=== PATIENT | female | born 1955 | race Caucasian/White ===

== ENCOUNTER 2020-08-29 16:43 | Emergency (ER) | payer OTHER ==
[~2020-08-29] VITALS: Ht 175.3 cm; Wt 81.6 kg
[2020-08-29] MEDS ORDERED: OXYCODONE HCL5 MG PO ×2 (17:09→17:51)
[2020-08-29] MEDS ORDERED: LANTUS100 UNITS/ SUB-Q (17:10)
[2020-08-29] MEDS ORDERED: ATENOLOL25 MG PO (17:10)
[2020-08-29] MEDS ORDERED: GLUCOPHAGE1000 MG PO (17:11)
[2020-08-29] MEDS ORDERED: HYDROCHLOROTHIA25 MG PO (17:12)
[2020-08-29] MEDS ORDERED: VENTOLIN HFA18 GM INH (17:13)
[2020-08-29] MEDS ORDERED: TRIAMCINOLONE A15 G1 TOP (17:51)
[2020-08-29] MEDS ORDERED: KETOCONAZOLE15 GM TOP (17:51)
--- OUTSIDE RECORDS SUMMARY | 2020-08-29 17:54 | XMS ---
PreManage Notification: ROBERT JACOBSEN Security Clinical Support Nurse Events No recent Security Events currently on file [facility] There are no care providers on record at this time. Rhea has no Care Guidelines for this patient. Teresa VISIT COUNT (12 MO.) 1 ANGIE Mcneal TOTAL 1 NOTE: Visits indicate total known visits. ED/C VISIT TRACKING (12 MO.) 08/29/2020 16:47 ANGIE Silver [place] TYPE: Emergency COMPLAINT: - MULT COMPLAINTS INPATIENT VISIT TRACKING (12 MO.) No inpatient visits to display in this time frame [id number]
== END 2020-08-29 18:00 | disposition home or self-care (01) ==
LOC: ED 16:43
DX: R21 Rash and other nonspecific skin eruption (principal); Z76.0 Encounter for issue of repeat prescription; J44.9 Chronic obstructive pulmonary disease, unspecified; E11.9 Type 2 diabetes mellitus without complications; F17.200 Nicotine dependence, unspecified, uncomplicated; Z79.899 Other long term (current) drug therapy; Z79.4 Long term (current) use of insulin
CPT/HCPCS: 99282

== ENCOUNTER 2021-03-07 12:29 | Observation (INO) | payer MEDICARE, OTHER ==
[~2021-03-07] VITALS: Ht 175.3 cm; Wt 82.0 kg
[~2021-03-07 12:29] MED LIST: ATENOLOL25 MG PO; GLUCOPHAGE1000 MG PO; HYDROCHLOROTHIA25 MG PO; KETOCONAZOLE15 GM TOP; LANTUS100 UNITS/ SUB-Q; OXYCODONE HCL5 MG PO; TRIAMCINOLONE A15 G1 TOP; VENTOLIN HFA18 GM INH
--- OUTSIDE RECORDS SUMMARY | 2021-03-07 12:32 | XMS ---
PreManage Notification: ROBERT JACOBSEN Security Vacuum Closing Machine Operator Events No recent Security Events currently on file [facility] There are no care providers on record at this time. Rhea has no Care Guidelines for this patient. Teresa VISIT COUNT (12 MO.) 2 ANGIE Mcneal TOTAL 2 NOTE: Visits indicate total known visits. ED/C VISIT TRACKING (12 MO.) 03/07/2021 12:30 ANGIE Silver [place] TYPE: Emergency COMPLAINT: - HIGH BLOODSUGAR, NUMB ISSUE 08/29/2020 16:[address] [facility] OR TYPE: Emergency COMPLAINT: - MULT COMPLAINTS DIAGNOSES: - Chronic obstructive pulmonary disease, unspecified - Encounter for issue of repeat prescription - Type 2 diabetes mellitus without complications - custodial (current) use of insulin - Rash and other nonspecific skin eruption - Nicotine dependence, unspecified, uncomplicated - Other fdc (current) drug therapy INPATIENT VISIT TRACKING (12 MO.) No inpatient visits to display in this time frame [id number]
--- NOTE | 2021-03-07 17:20 | NUR ---
PT TO ROOM VIA STRETCHER SELF TRANSFERS TO BED. PT IS UPBEAT AND COOPERATIVE ALERT AND ORIENTED. REPORTS NO FOOD OTHER THAN A SNACK SINCE YESTERDAY, ASSISTED TO ORDER EVENING MEAL. PT ORIENTED TO ROOM AND AGREES TO USE THE CALL LIGHT FOR UP OUT OF BED. NEEDED ITEMS AT BEDSIDE.
--- NOTE | 2021-03-07 19:00 | NUR ---
SHIFT REPORT RECEIVED FROM DAYSHIFT GREGORY ELY AT BEDSIDE. pt AWAKE AND RESTING IN BED, UP TO VOID, SBA AND RETURNED TO BED. TOLERATED WELL, STEADY ON FEET. WARM BLANKET PROVIDED. NO ADDITIOANL NEEDS, BOARD UPDATED. CALL LIGHT IN REACH.
--- NOTE | 2021-03-07 19:17 | NUR ---
pt has 100% of evening meal denies needs of anything else
--- NOTE | 2021-03-07 20:30 | NUR ---
PRN PAIN MEDICATION GIVEN FOR 4-5/10 GENERALIZED PAIN R/T NEUROPATHY. SEE EMAR. NO FURTHER NEEDS, CALL LIGHT IN REACH.
--- NOTE | 2021-03-07 21:15 | NUR ---
pt ASKING FOR HER HOME SLEEPING MEDS. pt BROUGHT HER HOME QUETIAPINE FUMARATE 200MG DAILY AT BEDTIME. ON PHONE WITH DR MONTERO, PER MD AVILES FOR pt TO TAKE HOME MED LISTED ABOVE. ULTRASONIC TESTER BAILEY TO VERIFY MED THROUGH TELEPHARMACY.
--- NOTE | 2021-03-07 22:30 | NUR ---
ASSESSMENT COMPLETE, SCHEDULED MEDS GIVEN, SEE EMAR. NIH STROKE SCALE REMAINS UNCHANGED, RESULT OF 1. NUMBNESS TO RIGHT SIDE OF FACE, RIGHT THUMB, INDEX AND MIDDLE FINGER UNCHANGED. A/OX4, SBA WITH AMBULATION. IV FLUIDS INFUSING PER MD ORDERS, SITE WNL. NO FURTHER NEEDS, VS AND I&O'S ALSO COMPLETE. CALL LIGHT IN REACH.
--- NOTE | 2021-03-07 23:46 | NUR ---
PATIENT'S ICE WATER REFILLED AND DIABETIC PUDDING GIVEN. PATIENT HAD NO OTHER CARE NEEDS. CALL LIGHT IS IN REACH.
--- NOTE | 2021-03-08 00:44 | NUR ---
pt RESTING IN BED, EYES CLOSED, RR EVEN AND UNLABORED. ON RA, TELE#[address], NSR, HR 60. NO DISTRESS NOTED, CALL LIGHT IN REACH.
--- NOTE | 2021-03-08 01:49 | NUR ---
ASSESSMENT COMPLETE, NO NEW CHANGES OR CONCERNS. PUPILS EQUAL AND REACTIVE TO LIGHT, NO CHANGES TO ALREADY EXISTING NUMBNESS TO RIGHT SIDE OF SIDE, RIGHT THUMB, INDEX, AND MIDDLE FINGER. pt A/OX4, TELE#[address] IN [address], HR 63, NSR. VSS, I&O'S COMPLETE. CALL LIGHT IN REACH.
--- NOTE | 2021-03-08 03:13 | NUR ---
NEW BAG IV FLUIDS HUNG AND INFUSING PER MD ORDERS, IV SITE WNL. EYES CLOSED, RR EVEN AND UNLABORED, NO DISTRESS NOTED. CALL LIGHT IN REACH.
--- NOTE | 2021-03-08 04:30 | NUR ---
IN TO GET VITALS, PT UP TO VOID SBA, ICE WATER REFILLED, RN IN ROOM, NO FURTHER NEEDS AT THIS TIME
--- NOTE | 2021-03-08 04:47 | NUR ---
PRN PAIN MEDICATION GIVEN FOR 8/10 PAIN, SEE EMAR. VS AND I&O'S COMPLETE. MRI SCREENING FORM ALSO COMPLETED AT THIS TIME. CALL LIGHT IN REACH. WARM BLANKET PROVIDED.
--- NOTE | 2021-03-08 05:37 | NUR ---
MED ENVELOPES UNAVAILABLE AT THIS TIME, ALL HOME MEDS INCLUDING OXYCODONE PLACED IN KITS LIST TO KEEP SAFE AT THIS TIME. AWAITING MED ENVELOPE FROM DEFENCE INTELLIGENCE ANALYST, DEFENCE INTELLIGENCE ANALYST AWARE PER STOCK RAISER BAILEY.
--- NOTE | 2021-03-08 06:55 | EKG ---
[facility] [address] [place] [address] Signed Normal sinus rhythm Septal infarct , age undetermined Abnormal ECG No previous ECGs available Confirmed by KESHA MONTERO MD ([id number]) on 03/08/2021 6:55:05 AM Electronically Signed By: KESHA MONTERO MD 03/08/21 0655 PATIENT NAME: ROBERT JACOBSEN Electrocardiogram DATE OF : 59 PHYSICIAN: KESHA MONTERO MD REPORT #: [id number] REPORT IS CONFIDENTIAL AND NOT TO BE RELEASED WITHOUT AUTHORIZATION
--- NOTE | 2021-03-08 07:16 | NUR ---
IN TO REPLACE TELE LINDA AND PROVIDE WARM BROTH, NO FURTHER NEED AT THIS TIME
--- NOTE | 2021-03-08 07:24 | NUR ---
PT SITTING UP IN BED WATCHING TV AT TIME OF SHIFT EXCHANGE. FRESH H20 AT BEDSIDE CALL LIGHT IN REACH. PT DENIES DISCOMFORTS STATES SHE'S BEEN UP SINCE 0 HOPES TO GET A NAP. REFUSES BLINDS OPEN.
--- NOTE | 2021-03-08 08:10 | NUR ---
Pt states she lives in a 2 story home with her daughter, granddaughter and grandson. Daughter and granddaughter are disabled.She has food stamps and uses the food bank. Uses [employer] and they are assisting with electricity bill. She states she is essentially her daughter and granddaughter's cg as much as she is able to provide care. Plans on dc to home. Grandson will pick her up for ride home. Denies other needs for dc at this time.
--- NOTE | 2021-03-08 10:52 | NUR ---
PATIENT HAS BEEN UP TO BATHROOM, IND. PATIENT NOW BACK TO BED. PATIENT SAID SHE WILL THINK ABOUT A SHOWER/BED BATH AND LET ME KNOW. CALL LIGHT IN REACH. NO FURTHER NEEDS AT THIS TIME.
[2021-03-08] MEDS ORDERED: QUETIAPINE FUM200 MG PO (10:53)
[2021-03-08] MEDS ORDERED: ATENOLOL100 MG PO (10:55)
[2021-03-08] MEDS ORDERED: DESVENLAFAXINE25 MG PO (10:55)
[2021-03-08] MEDS ORDERED: PREGABALIN50 MG PO (10:55)
[2021-03-08] MEDS ORDERED: FARXIGA10 MG PO (11:02)
--- NOTE | 2021-03-08 11:14 | NUR ---
PT EATS MOST OF MORNING MEAL SITTING UP IN BED DENIES DISCOMFORTS OR INCREASE IN SYMPTOMS. REMAINS UNCHANGED NEUROLOGICALLY FROM YESTERDAY. DISCUSSED MRI TO BE DONE LATER TODAY ALL QUESTIONS ANSWERED.
[2021-03-08] MEDS ORDERED: VITAMIN B-12500 MCG PO (11:22)
--- NOTE | 2021-03-08 11:38 | NUR ---
Medications reconciled using Prescription records and patient interview
--- NOTE | 2021-03-08 12:59 | NUR ---
DR MONTERO IN TO SEE PT EARLIER DISCUSSES PLAN GOING FORWARD FOR TESTING WELL DC. ALL QUESTIONS ANSWERED. PT SON PRESENT AT THIS TIME PT TO GO TO MRI AROUND 1300
--- NOTE | 2021-03-08 13:44 | NUR ---
PT TO MRI VIA W/C. NOTICED HER HIDING SOMETHING SHE WAS GETTING OUT OF BED IT WAS A PILL CUTTER SHE SLIPPED IN HER BAG. 1 PINK TAB FOUND IN HER BED AFTER SHE LEFT IT WAS OXY. REPORTED TO DR MONTERO. NO NEW ORDERS
[2021-03-08] MEDS ORDERED: CLOPIDOGREL75 MG PO (14:21)
[2021-03-08] MEDS ORDERED: LO-DOSE ASPIRIN81 MG PO (14:21)
--- NOTE | 2021-03-08 14:26 | NUR ---
PT REPORTS SHE WASN'T ABLE TO TOLERATE MRI RETURNS TO HER ROOM. DC ORDERS WRITTEN. LIFE WAYS COUNCELOR HERE EARLIER TO COORDINATE AFTER HOSPITAL CARE. SHE WAS TO MAKE MD APPT AND ARRANGE TRANSPORT. MET WITH DC TECHNOLOGY LEAD TO COORDINATE CARE. PT STRONLY URGED TO F/U WITH PCP FOR CARE. INFORMATION ON STROKE WELL TIA PPROVIDED IN WRITING.
== END 2021-03-08 14:55 | disposition home or self-care (01) ==
LOC: ED 12:29 → MS 12:31 → ED 16:13 → MS 16:13
PROVIDERS: ADMIT Internal Medicine; ATTEND Internal Medicine
DX: R29.810 Facial weakness (principal); R20.2 Paresthesia of skin; J44.9 Chronic obstructive pulmonary disease, unspecified; I10 Essential (primary) hypertension; G89.29 Other chronic pain; K74.60 Unspecified cirrhosis of liver; E11.40 Type 2 diabetes mellitus with diabetic neuropathy, unspecified; E11.65 Type 2 diabetes mellitus with hyperglycemia; Z20.822 Contact with and (suspected) exposure to COVID-19; H54.3 Unqualified visual loss, both eyes; J35.1 Hypertrophy of tonsils; Z79.4 Long term (current) use of insulin; Z79.899 Other long term (current) drug therapy
CPT/HCPCS: 36415; 70450; 70496; 70498; 71045; 80048; 80053; 85025; 85610; 85730; 93005; 93010; 99285-25; C9803; G0378; J1815; J7030; Q9967; U0003

== ENCOUNTER 2022-03-25 13:27 | Emergency (ER) | payer MEDICARE, OTHER ==
[~2022-03-25] VITALS: Ht 175.3 cm; Wt 81.5 kg
[~2022-03-25 13:27] MED LIST changes: +ATENOLOL100 MG PO; +CLOPIDOGREL75 MG PO; +DESVENLAFAXINE25 MG PO; +FARXIGA10 MG PO; +LO-DOSE ASPIRIN81 MG PO; +PREGABALIN50 MG PO; +QUETIAPINE FUM200 MG PO; +VITAMIN B-12500 MCG PO
--- OUTSIDE RECORDS SUMMARY | 2022-03-25 13:30 | XMS ---
PreManage Notification: ROBERT JACOBSEN Security Staple Cutter Events No recent Security Events currently on file CRITERIA MET - [facility] - 2 Visits in 30 Days CARE PROVIDERS Ronak Zhang Family [facility] 03/08/2021-Current DO PHONE: [phone] Rhea has no Care Guidelines for this patient. Teresa VISIT COUNT (12 MO.) 2 [facility] TOTAL 2 NOTE: Visits indicate total known visits. ED/UCC VISIT TRACKING (12 MO.) 03/25/2022 13:27 ANGIE Silver [place] TYPE: Emergency COMPLAINT: - ABD PAIN 03/07/2022 16:42 ANGIE Silver [place] TYPE: Emergency COMPLAINT: - LT SIDE ABD PAIN DIAGNOSES: - Nicotine dependence, unspecified, uncomplicated - Left lower quadrant pain - oil heaterman (current) use of insulin - Type 2 diabetes mellitus without complications - oil heaterman (current) use of aspirin - Other termite exterminator helper (current) drug therapy - Chronic obstructive pulmonary disease, unspecified INPATIENT VISIT TRACKING (12 MO.) No inpatient visits to display in this time frame [email or web address]
[2022-03-25] MEDS ORDERED: CEPHALEXIN500 M1 PO (18:07)
== END 2022-03-25 18:53 | disposition home or self-care (01) ==
LOC: ED 13:27
DX: R10.9 Unspecified abdominal pain (principal); J44.9 Chronic obstructive pulmonary disease, unspecified; E11.9 Type 2 diabetes mellitus without complications; F17.200 Nicotine dependence, unspecified, uncomplicated; Z79.899 Other long term (current) drug therapy; Z79.4 Long term (current) use of insulin; Z79.84 Long term (current) use of oral hypoglycemic drugs
CPT/HCPCS: 36415; 74177; 80053; 81001; 83690; 85025; 87088; 96375; 96376; 99284-25; J0696; J1170; J7030; Q9967

== ENCOUNTER 2022-06-26 13:22 | Emergency (ER) | payer MEDICARE, OTHER ==
[~2022-06-26] VITALS: Ht 175.3 cm; Wt 81.0 kg
[~2022-06-26 13:22] MED LIST changes: +CEPHALEXIN500 M1 PO
--- OUTSIDE RECORDS SUMMARY | 2022-06-26 13:24 | XMS ---
PreManage Notification: ROBERT JACOBSEN Security Tie Puller Events No recent Security Events currently on file CRITERIA MET - [facility] CARE PROVIDERS Ronak Zhang [facility] 03/08/2021-Current DO PHONE: [phone] Rhea has no Care Guidelines for this patient. Teresa VISIT COUNT (12 MO.) 3 ANGIE Mcneal TOTAL 3 NOTE: Visits indicate total known visits. ED/UCC VISIT TRACKING (12 MO.) 06/26/2022 13:22 ANGIE Silver [place] TYPE: Emergency COMPLAINT: - COLD SYMPTOMS 03/25/2022 13:27 ANGIE Silver [place] TYPE: Emergency COMPLAINT: - ABD PAIN DIAGNOSES: - Unspecified abdominal pain - termite inspector (current) use of oral hypoglycemic drugs - Chronic obstructive pulmonary disease, unspecified - Type 2 diabetes mellitus without complications - Nicotine dependence, unspecified, uncomplicated - Other intermediate designer (current) drug therapy - termite inspector (current) use of insulin 03/07/2022 16:42 ANGIE Silver [place] TYPE: Emergency COMPLAINT: - LT SIDE ABD PAIN DIAGNOSES: - Nicotine dependence, unspecified, uncomplicated - Other intermediate designer (current) drug therapy - Type 2 diabetes mellitus without complications - Left lower quadrant pain - Chronic obstructive pulmonary disease, unspecified - senior care (current) use of aspirin - termite inspector (current) use of insulin INPATIENT VISIT TRACKING (12 MO.) No inpatient visits to display in this time frame [id number]
== END 2022-06-26 18:00 | disposition home or self-care (01) ==
LOC: ED 13:22
DX: U07.1 COVID-19 (principal); J44.9 Chronic obstructive pulmonary disease, unspecified; E11.9 Type 2 diabetes mellitus without complications; F17.200 Nicotine dependence, unspecified, uncomplicated; Z28.310 Unvaccinated for COVID-19; Z79.899 Other long term (current) drug therapy
CPT/HCPCS: 96374; 96375; 99283-25; A9270; J2405

== ENCOUNTER 2023-03-19 22:55 | Emergency (ER) | payer OTHER, MEDICARE ==
[~2023-03-19] VITALS: Ht 175.3 cm; Wt 78.9 kg
--- OUTSIDE RECORDS SUMMARY | 2023-03-19 22:59 | XMS ---
PreManage Notification: ROBERT JACOBSEN Security Stress Engineer Events No recent Security Events currently on file CRITERIA MET - [facility] CARE PROVIDERS ThomasRonak connell [facility] 03/08/2021-Current DO PHONE: Unknown Rhea has no Care Guidelines for this patient. [place] VISIT COUNT (12 MO.) 3 ANGIE Mcneal TOTAL 3 NOTE: Visits indicate total known visits. ED/UCC VISIT TRACKING (12 MO.) 03/19/2023 22:56 ANGIE Silver [place] TYPE: Emergency COMPLAINT: - L ARM INJ 06/26/2022 13:22 ANGIE Silver [place] TYPE: Emergency COMPLAINT: - COLD SYMPTOMS DIAGNOSES: - Chronic obstructive pulmonary disease, unspecified - COVID-19 - Nicotine dependence, unspecified, uncomplicated - Other regional intermodal truck driver (current) drug therapy - Type 2 diabetes mellitus without complications - Unvaccinated for COVID-19 03/25/2022 13:27 ANGIE Silver [place] TYPE: Emergency COMPLAINT: - ABD PAIN DIAGNOSES: - Chronic obstructive pulmonary disease, unspecified - buttermaker continuous churn (current) use of insulin - buttermaker continuous churn (current) use of oral hypoglycemic drugs - Nicotine dependence, unspecified, uncomplicated - Other fpc (current) drug therapy - Type 2 diabetes mellitus without complications - Unspecified abdominal pain INPATIENT VISIT TRACKING (12 MO.) No inpatient visits to display in this time frame [email or web address]
[2023-03-19 23:28] VITALS: BP 176/62
== END 2023-03-19 23:28 | disposition home or self-care (01) ==
LOC: ED 22:55
DX: S40.812A Abrasion of left upper arm, initial encounter (principal); W01.0XXA Fall on same level from slipping, tripping and stumbling without subsequent striking against object, initial encounter; E11.42 Type 2 diabetes mellitus with diabetic polyneuropathy; J44.9 Chronic obstructive pulmonary disease, unspecified; F17.200 Nicotine dependence, unspecified, uncomplicated; Z79.899 Other long term (current) drug therapy; Z79.4 Long term (current) use of insulin; Z23 Encounter for immunization
CPT/HCPCS: 90471; 90714; 99282-25

== ENCOUNTER 2024-04-09 21:03 | Inpatient (IN) | payer OTHER ==
[~2024-04-09] VITALS: Ht 175.3 cm; Wt 76.3 kg
[2024-04-09 21:27] LABS: BASOPHILS 0.9 % (0-2); HEMATOCRIT 45.3 % (35.0-50.0); HEMOGLOBIN 15.3 g/dL (12.0-18.0); LYMPHOCYTES 27.4 % (24-44); MCH 32.9 (27-36); MCHC 33.6 g/dl (30-36); MCV 97.8 fl (81-99); MONOCYTES 7.9 % (0-12); NEUTROPHILS 62.8 % (39-80); PLATELET COUNT 255 K/uL (140-440); RBC 4.64 M/ul (4.3-5.7); RDW 14.4 (10.5-15.0)
[2024-04-09 21:51] LABS: ALBUMIN 2.9 g/dL (3.4-5.0); ALBUMIN/GLOBULIN RATIO 0.69 (1.1-2.4); ALCOHOL, MEDICAL <3 ng/dL (<3); ALKALINE PHOSPHATASE 101 U/L (46-116); ALT (SGPT) 33 U/L (14-59); ANION GAP 12.3 (7-21); AST (SGOT) 31 U/L (15-37); BILIRUBIN, TOTAL 1.8 ng/dL (0.2-1.0); BUN/CREATININE RATIO 22.72 (6.0-28.6); CALCIUM 8.7 mg/dL (8.5-10.1); CARBON DIOXIDE 26 mmol/L (21-32); CHLORIDE 96 mmol/L (98-107); CREATININE, SERUM 0.88 mg/dL (0.55-1.02); GLOMERULAR FILTRATION RATE,EST 72 mL/min (>60); POTASSIUM 4.3 mmol/L (3.5-5.1); PROTEIN, TOTAL 7.1 g/dL (6.4-8.2); UREA NITROGEN 20 mg/dL (7-18)
[2024-04-09] MEDS ORDERED: ASPIRIN 81 MG CHEW PO ONE (22:00)
[2024-04-09 22:01] LABS: BILIRUBIN, URINE NEGATIVE (negative); BLOOD/HGB, URINE TRACE-I (Negative); KETONE, URINE NEGATIVE (Negative); LEUK ESTERASE, URINE NEGATIVE (negative); NITRITE, URINE NEGATIVE (negative); PH, URINE 5.5 (5-7)
[2024-04-09 22:06] LABS: EPITHELIAL CELLS, URINE SQUAMOUS 1+ /lpf (0-1+)
[2024-04-09 22:07] LABS: BACTERIA, URINE RARE /hpf (negative); CASTS, URINE NONE SEEN \\lpf; CRYSTALS, URINE NONE SEEN (0-1+); REFLEX CULTURE, URINE No (No)
[2024-04-09 22:15] LABS: AMPHETAMINES, URINE NEGATIVE (NEGATIVE); BARBITURATES, URINE NEGATIVE (NEGATIVE); BENZODIAZEPINE, URINE NEGATIVE (NEGATIVE); BUPRENORPHINE, URINE NEGATIVE (NEGATIVE); CANNABINOID, URINE NEGATIVE (NEGATIVE); COCAINE, URINE NEGATIVE (NEGATIVE); ECSTASY, URINE NEGATIVE (NEGATIVE); FENTANYL, URINE NEGATIVE (NEGATIVE); METHADONE, URINE NEGATIVE (NEGATIVE); OPIATES, URINE POSITIVE (NEGATIVE); OXYCODONE, URINE POSITIVE (NEGATIVE); PHENCYCLIDINE, URINE NEGATIVE (NEGATIVE)
[2024-04-09] MEDS ORDERED: ATORVASTATIN 40 MG TAB PO ONE (22:15)
--- NOTE | 2024-04-09 23:15 | NUR ---
BEDSIDE REPORT RECEIVED FROM GREGORY MAHARAJ. NEURO- ALERT, ORIENTED X 4, NODS YES/NO APPROPRIATELY. WORD SALAD PRESENT. EXPRESSIVE APHASIA, SOME RECEPTIVE APHASIA, UNABLE TO PULL THIS RN TOWARDS HER HOWEVER ABLE TO FOLLOW AND COMPLETE ALL OTHER COMMANDS. BEDSIDE SWALLOW EXAM COMPLETED WITH NO COMPLICATIONS. MD CRAWFORD AT BEDSIDE. VERBAL ORDER TO ADVANCE DIET TO LOW CARB DIABETIC DIET. NEURO Q2 2RN SKIN CHECK COMPLETED WITH GREGORY FANG
[2024-04-10] VITALS (15 sets, daily range): BP systolic 127–169; BP diastolic 52–92
--- NOTE | 2024-04-10 01:20 | NUR ---
NIHSS SCORED AT A 7. UNABLE TO ANSWER MONTH/ YEAR CORRECTLY. DRIFT IN BLE BUT DOES NOT REACH BED, BEST LANGUAGE (1), DYSARTHRIA (1). PATIENT ROBERT DENIES ANY PAIN OR NEEDS AT THIS HOUR. VSS AND WDL PER MONITOR. SAFETY CHECK OF ROOM PERFORMED. WILL CONTINUE TO MONITOR AND ASSESS PROGRESS
[2024-04-10] MEDS ORDERED: IBLOOD GLUCOSE TEST STRIP 1 EA TEST VI SCH ×2 (02:00→17:00)
[2024-04-10] MEDS ORDERED: Insulin Regular, Human 100 UNIT/ML ML SUB-Q SCH ×2 (02:00→17:00)
--- NOTE | 2024-04-10 03:05 | NUR ---
NIHSS 5 FOR SEVERE APHASIA. ROBERT WAS NOT ABLE TO NAME THE ITEMS, READ THE SENTENCES, OR DESCRIBE THE PICTURES. WHEN ASKED IS SHE COULD "SHOW ME THE MOUSE" SHE WAS UNABLE TO DO SO. STAND BY ASSIST TO RESTROOM. SMALL BOWEL MOVEMENT AND 850CC URINE VOIDED. ROBERT IS NOW BACK IN BED. VSS AND WDL. H20 PROVIDED
[2024-04-10] MEDS ORDERED: IBLOOD GLUCOSE TEST STRIP 1 EA TEST XX PRN (03:45)
[2024-04-10] MEDS ORDERED: DEXTROSE 5% 1,000 ML IV PRN (03:45)
[2024-04-10] MEDS ORDERED: DEXTROSE 50% 50 ML SYR IV PRN ×2 (03:45)
[2024-04-10] MEDS ORDERED: GLUCAGON,HUMAN RECOMBINANT 1 MG/ML VIAL SUB-Q PRN (03:45)
[2024-04-10 05:38] LABS: BASOPHILS 0.8 % (0-2); HEMATOCRIT 44.2 % (35.0-50.0); HEMOGLOBIN 15.4 g/dL (12.0-18.0); LYMPHOCYTES 26.6 % (24-44); MCH 33.3 (27-36); MCHC 34.8 g/dl (30-36); MCV 95.8 fl (81-99); NEUTROPHILS 62.6 % (39-80); PLATELET COUNT 234 K/uL (140-440); RBC 4.62 M/ul (4.3-5.7); RDW 14.4 (10.5-15.0)
[2024-04-10 05:49] LABS: ANION GAP 16.1 (7-21); BUN/CREATININE RATIO 27.27 (6.0-28.6); CALCIUM 9.2 mg/dL (8.5-10.1); CREATININE, SERUM 0.55 mg/dL (0.55-1.02); MAGNESIUM 1.8 mg/dL (1.8-2.4); POTASSIUM 4.1 mmol/L (3.5-5.1)
--- NOTE | 2024-04-10 05:49 | NUR ---
NO CHANGE FROM PREVIOUS NIHSS. WILL REEVALUATE AT APPROPRIATE TIME
--- NOTE | 2024-04-10 06:23 | NUR ---
ROBERT TRANSPORTED TO MRI WITH SCHEDULE PLANNING MANAGER FELIBERTO VIA WHEELCHAIR. VSS AND WDL PER MONITOR
--- NOTE | 2024-04-10 07:15 | NUR ---
Report received from Dayna RN. Patient resting in bed, awakens to voice, able to roll to her back by self. NIH complete with Dayna and Yolanda RNs at bedside. Patient demonstrates severe expressive aphasia and inattention. Unclear if patient experiencing receptive aphasia as some responses are appropriate to context while others are not. No physical defecits noted at this time, able to hold prolonged extremity test with no drifts. Frequent yawning. Able to operate bed controls on her own. Updated on POC for day, patient nods and says yes. Call light in reach.
--- NOTE | 2024-04-10 07:20 | NUR ---
PT ASSIST TO BATHROOM AND BACK TO BED WITHOUT INCIDENT. MONITOR LINES REPLACED. BED IN LOW, LOCKED POSITION, BED ALARM ON FOR PT SAFETY. VSS AND NAD NOTED VIA DIRECT OBS AND CONTINUOUS MONITOR.
--- NOTE | 2024-04-10 07:27 | NUR ---
SBAR REPORT GIVEN TO DAY SHIFT RNS BACK IN BED FROM MRI. VSS AND WDL WITH PERMISSIVE HTN 162/67 AMBULATED TO BATHROOM SBA NEURO- NIHSS Q2, CURRENT NIHSS SCORE 5, EXPRESSIVE APHASIA, POSSIBLE RECEPTIVE APHASIA, SBA, PERRL CARDIAC- SR, AFEBRILE RESP- RA, CLEAR BREATH SOUNDS GI/- NORMOACTIVE BOWEL TONES, 60G CARB DIET, SMALL BM, ACHS INT- SEE ASSESSMENT + LEFT BREAST FOLD RASH LDA- LAC, RAC
[2024-04-10] MEDS ORDERED: ASPIRIN 81 MG CHEW PO SCH (08:00)
--- NOTE | 2024-04-10 09:15 | NUR ---
Patient worked with PT/OT/ST. Patient able and willing to participate in therapies. Able to walk to bathroom and has large BM. Patient has trouble cleaning herself needing frequent cueing and assistance. Back to bed at this time, when asked if comfortable patient states yes. Patient has been using call light appropriately. Bed alarm in place for safety.
--- NOTE | 2024-04-10 09:40 | NUR ---
LEFT MESSAGE FOR MEDICAL RECORDS AT [facility] IN [place] TO REQUEST RECORDS.
--- NOTE | 2024-04-10 09:55 | NUR ---
UR CLINICAL REVIEW: MCG/2 [place] FOR VERSALUS-MEETS CRITERIA FOR INPT STAY MEDICARE INPT 04/09/24 @ 2213 ORDER MATCHES REG WILL SEND CLINICAL TO [facility] FOR REVIEW DISCHARGE PENDING ONGOING EVAL OF NEEDS
--- NOTE | 2024-04-10 10:40 | NUR ---
IN TO SPEAK WITH PATIENT. PATIENT LAYING ON HER SIDE AWAKE. ATTEMPTED TO DISCUSS DC PLANS WITH POSSIBLE PLACEMENT TO REHAB IN [place]. PATIENT APPEARS TO UNDERSTAND, BUT IS UNABLE TO GIVE A CLEAR ANSWER. PATIENT APPEARS TO BE ASKING A QUESTION REGARDING HER DISCHARGE, BUT DUE TO WORD SALAD I AM UNABLE TO ANSWER. ASKED IF PATIENT HAD FAMILY IN TOWN. I WAS ABLE TO DECIPHER THE NAME JOHN, BUT NOTHING MORE. WILL CONTINUE TO LOCATE FAMILY. SPOKE WITH JULIA IN MEDICAL RECORDS AT [facility] IN [place]. PATIENT WAS LAST SEEN 12/05/22 AND REPORTED TO THEM THAT SHE WAS MOVING TO [place] AT THAT TIME.
--- NOTE | 2024-04-10 10:58 | NUR ---
VISITED DURING SPIRITUAL CARE ROUNDS. PT APPEARED TO BE SLEEPING. DID NOT INTERRUPT. PROVIDED PRAYER.
--- NOTE | 2024-04-10 11:00 | NUR ---
ABLE TO MAKE CONTACT WITH PATIENT SON CHAKA. HE STATES HE LIVES IN [place] AND HE HAD RECENTLY PICKED UP THE PATIENT FROM A HOSPITAL IN [place] WHERE SHE HAD PREVIOUSLY HAD A STROKE. CHAKA STATES THEY PICKED THE PATIENT UP ON MONDAY AND DROVE BACK TO [place]. HE STATES THAT HE NOTICED DURING THE DRIVE THAT THE PATIENT SEEMED AGITATED, BUT THAT IT WAS JUST DUE TO ADJUSTMENT. HE STATES THAT WHEN THEY ARRIVED AT THEIR HOME THE PATIENT STARTED WONDERING. YESTERDAY CHAKA STATES THAT THE PATIENT WONDERED OFF 3 TIMES AND HE WAS UNABLE TO LOCATE HER. HE STATES THAT SHE ALSO TOOK HIS CAR KEYS WHICH HE CAN'T LOCATE NOW. CHAKA WILL ATTEMPT TO FIND HIS KEYS AND COME IN TO SEE THE PATIENT. HE STATES THAT HE IS WILLING TO HAVE HER RETURN TO HIS HOME WITH HIS AND CHILDREN IF SHE DOESN'T CONTINUE TO WONDER. HE IS AGREEABLE TO HAVING HOME HEALTH FOR THERAPIES, BUT IS ALSO OPEN TO PLACEMENT OPTIONS. WILL UPDATE CHAKA LATER TODAY IF HE IS UNABLE TO MAKE IT INTO SEE THE PATIENT.
[2024-04-10] MEDS ORDERED: CLOPIDOGREL BISULFATE 75 MG TAB PO SCH (11:03)
[2024-04-10] MEDS ORDERED: PHARMACY RENAL DOSE ADJUSTMENT 1 DOSE MISC PO SCH (12:00)
--- NOTE | 2024-04-10 12:16 | NUR ---
Scheduled medications administered. Patient attempting to convey something- through yes and no questions patient able to express that she is concerned about home medications and administrations while in hospital as well as personal belongings and contacting her son. This RN answers questions and reorients patient to the point of patient appearing content and leaning back in bed and closing eyes. Call light in reach.
--- NOTE | 2024-04-10 14:15 | NUR ---
Patient able to transfer self to chair and back to bed to her comfort.
--- NOTE | 2024-04-10 16:08 | NUR ---
Patient's granddaughter Lida Valladares calls and provides some information about patient's last admission: granddaughter reports patient needing a surgery for "blockages in her legs" when asked about possibility of blood clots she says yes--prior to having stroke, but never had the surgery. Also received information regarding patient dietary preferences and patient's granddaughters phone number [phone].
--- NOTE | 2024-04-10 17:15 | NUR ---
PATIENT WOKEN FOR DINNER, 1PA TO RECLINER. CHAIR ALARM ON FOR SAFETY.
--- NOTE | 2024-04-10 17:39 | NUR ---
CHAIR ALARM SOUNDING, PATIENT SELF TRANSFERED BACK TO BED FROM CHAIR. SMALL AMOUNT OF DINNER EATEN. TV CHANNEL CHANGED PER PATIENT REQUEST. CALL LIGHT IN EASY REACH. BED ALARM ON FOR SAFETY
--- NOTE | 2024-04-10 17:40 | EKG ---
[facility] [address] [place] [address] Signed Normal sinus rhythm Nonspecific ST abnormality Abnormal QRS-T angle, consider primary T wave abnormality Abnormal ECG When compared with ECG of 07-MAR-2021 13:19, No significant change was found Confirmed by JOSE CRAWFORD MD ([id number]) on 04/10/2024 5:40:32 PM Electronically Signed By: JOSE CRAWFORD 04/10/24 1740 PATIENT NAME: AMADORDWIGHTROBERT BILLIE Electrocardiogram DATE OF : 59 PHYSICIAN: JOSE CRAWFORD REPORT #: [id number] REPORT IS CONFIDENTIAL AND NOT TO BE RELEASED WITHOUT AUTHORIZATION
--- NOTE | 2024-04-10 18:21 | NUR ---
Call light answered, patient points at bathroom. SBA for void. Back to bed, patient attempting to communicate needs about family, states "money", when asked if she is concerned about money, her family's money, her placement/discharge plan, patient states to all "no", becoming increasingly agitated with her own expressive aphasia and using curse words after continuing to mumble/stutter words. This RN attempts to reassure and communicate with patient.
--- NOTE | 2024-04-10 18:57 | NUR ---
Patient motioned for this RN to enter room, able to communicate with patient enough to understand that she would like to have her granddaughters phone number written down and assistance with calling her, and patient states "thank you so much". Speech seems to have clearer moments than with previous assessments.
--- NOTE | 2024-04-10 20:09 | NUR ---
SBAR REPORT RECEIVED FROM GREGORY NORRIS. PATIENT ROBERT IS NOTED TO BE WATCHING TELEVISION. SHE DENIES ANY NEEDS OR DISCOMFORTS AT THIS MOMENT. NIHSS COMPLETED. NO ACUTE CHANGES SINCE PM SHIFT. SISTER LORENA UPDATED WITH PATIENT ROBERT'S PERMISSION
--- NOTE | 2024-04-10 21:13 | NUR ---
WENT IN TO TAKE PT TO THE RESTROOM, PT COULD NOT MAKE IT TO THE RESTROOM. I DID LUCY CARE AND A BED BATH ON PT. PT ALSO HAS NEW BEDDING. PT HAS CALL LIGHT AND WATER.
--- NOTE | 2024-04-10 21:22 | NUR ---
BILATERAL PIV PATENT AND INTACT. PATIENT ROBERT HAS BEEN CONSISTENT WITH ANSWERING YES/NO QUESTIONS. WHEN THIS RN ASKED HER IF SHE FELT "SAFE AT HOME" ROBERT RESPONDED "NO". THIS QUESTION WAS POSED 3X AND EACH TIME WAS MET WITH A NEGATIVE RESPONSE INCLUDIN FURROWING EYEBROWS, SHAKING HEAD NO, AND STATING NO. I THEN ASKED HER IF SHE WANTED TO LIVE WITH HER SISTER LORENA AND SHE LIT UP AND STATED YES. WILL INFORM CASE MANAGEMENT IN THE AM
--- NOTE | 2024-04-10 23:18 | NUR ---
ROBERT IS NOTED TO BE RESTING WITH EYES CLOSED. SHE REPOSITIONS SELF. VSS AND WDL. SAFETY CHECK OF ROOM COMPLETED. NO NEEDS IDENTIFIED AT THIS TIME
[2024-04-11] VITALS (8 sets, daily range): BP systolic 113–176; BP diastolic 41–85
--- NOTE | 2024-04-11 01:40 | NUR ---
SBA TO BATHROOM. MEDIUM BM WITH UNMEASURED VOID. SHE MIMICKED EATING AND WAS OFFERED A SANDWICH TO WHICH SHE REPLIED WITH A SMILE AND A HEAD NOD. SHE IS UP IN BED WATCHING TV. WARM BLANKETS PROVIDED. NO OTHER NEEDS IDENTIFIED AT THIS TIME
--- NOTE | 2024-04-11 01:54 | NUR ---
NOTIFIED DR CRAWFORD FOR PT REQUEST FOR ANTIDIARRHEAL. TELEPHONE ORDER RECEIVED, WRITTEN DOWN, READ BACK FOR VERIFICATION AND ENTERED INTO [employer].
[2024-04-11] MEDS ORDERED: DIPHENOXYLATE/ATROPINE 1 EA TAB PO PRN (02:00)
--- NOTE | 2024-04-11 05:44 | NUR ---
ROBERT WAS ABLE TO REST WELL WITH EYES CLOSED. SHE ENDORSES COMFORT. EXPRESSIVE APHASIA PRESENT. NEURO- ANSWERS YES/ NO APPROPRIATE, SBA TO AMBULATE, NO PAIN ENDORSED, MIMES AND MIMICS TO COMMUNICATE CARDIAC- SR, ST, FREQUENT PVCS, AFEBRILE RESP- RA, CLEAR, STRONG COUGH GI/- BMX2, VOIDS TO COMMODE, NORMOACTIVE BOWEL TONES, DIABETIC DIET INT- SEE ASSESSMENT LDA- BILATERAL PIV PATENT AND INTACT
[2024-04-11 05:45] LABS: BASOPHILS 1.1 % (0-2); EOSINOPHILS 1.3 % (0-6); HEMATOCRIT 46.4 % (35.0-50.0); LYMPHOCYTES 25.5 % (24-44); MCH 33.7 (27-36); MCHC 34.4 g/dl (30-36); MCV 97.8 fl (81-99); MONOCYTES 6.4 % (0-12); NEUTROPHILS 65.7 % (39-80); PLATELET COUNT 236 K/uL (140-440); RBC 4.74 M/ul (4.3-5.7); RDW 14.1 (10.5-15.0)
[2024-04-11 06:02] LABS: ALBUMIN/GLOBULIN RATIO 0.67 (1.1-2.4); ANION GAP 15.7 (7-21); BILIRUBIN, TOTAL 2.1 ng/dL (0.2-1.0); BUN/CREATININE RATIO 20.75 (6.0-28.6); CALCIUM 9.3 mg/dL (8.5-10.1); CREATININE, SERUM 0.53 mg/dL (0.55-1.02); POTASSIUM 3.7 mmol/L (3.5-5.1); PROTEIN, TOTAL 7.5 g/dL (6.4-8.2)
--- NOTE | 2024-04-11 06:51 | NUR ---
DISCUSSED PERMISSIVE HTN WITH MD CRAWFORD. WILL RESTART 10MG LISINOPRIL DAILY
--- NOTE | 2024-04-11 08:24 | NUR ---
IN PATIENT'S ROOM FOR AM ASSESSMENT, VITALS, AND BREAKFAST. UP TO CHAIR FOR BREAKFAST AND PT NOW BACK IN BED. SPEECH THERAPY NOW IN ROOM AND WORKING WITH PATIENT. PT STILL HAVING EXPRESSIVE APHASIA BUT IS ABLE TO COMMUNICATE NEEDS AND WANTS THROUGH POINTING AT THINGS AND STILL USING SOME "YES" "NO" ANSWERS. ATTEMPTED TO PULL PT'S BLINDS OPEN AND SHE CLEARLY STATES, "NO, NO". WILL CONTINUE TO MONITOR.
[2024-04-11] MEDS ORDERED: lisinopriL 10 MG TAB PO SCH (09:00)
--- NOTE | 2024-04-11 10:25 | NUR ---
Recieved call from GREGORY Scott, concerns expressed regarding patient verbalizing desire not to return home with son and desire to go to sister in [place]. Also concerned about patient being missing for period of time prior to family reaching out. Instructed floor nurse to notify APS with concerns if she is feeling patient needs follow-up.
--- NOTE | 2024-04-11 11:27 | NUR ---
PATIENT INCONTINENT OF LARGE SEMI LIQUID STOOL. THIS INSURANCE CLAIMS SUPERVISOR ASSISTING PATIENT INTO SHOWER, PATIENT TOLERATING ACTIVITY WELL, SLIGHTLY UNSTEADY ON HER FEET. PATIENT ABLE TO ASSIST IN PERSONAL SHOWER ACTIVITIES. PATIENT DOES CONTINUE TO MENTION NEEDING HER "SHOT." STAFF UNABLE TO FIGURE OUR WHAT THIS SHOT IS FOR. PATIENT NODS AND VERBALIZES "YES" WHEN ASKED IF THIS SHOT IS FOR PAIN. PATIENT VISIBLY FRUSTRATED AND CLEARLY STATES "TOOK IT ALL MY LIFE." RN NOTIFIED PATIENT BACK TO CLEAN BED, BED ALARM ON FOR SAFETY. CALL LIGHT IN EASY REACH.
--- NOTE | 2024-04-11 12:08 | NUR ---
ARRIVED TO SHIFT, RECEIVED REPORT, IN TO INTRODUCE SELF TO PT
--- NOTE | 2024-04-11 12:11 | NUR ---
SHOWER COMPLETED WITH CAROLYNE WEBB. LINENS CHANGED
--- NOTE | 2024-04-11 12:33 | NUR ---
PT IN POSITION OF COMFORT, LUNCH PROVIDED, CALL LIGHT WITHIN REACH, SIDE RAILS RAISED
[2024-04-11] MEDS ORDERED: AMLODIPINE BESY10 MG PO (12:39)
[2024-04-11] MEDS ORDERED: ASPIRIN81 MG PO (12:41)
--- NOTE | 2024-04-11 12:41 | NUR ---
CHART FAXED TO [facility] FOR REFERRAL.
[2024-04-11] MEDS ORDERED: ATORVASTATIN CA80 MG PO (12:42)
[2024-04-11] MEDS ORDERED: LISINOPRIL30 MG PO (12:43)
[2024-04-11] MEDS ORDERED: METFORMIN HCL500 MG PO (12:43)
[2024-04-11] MEDS ORDERED: PANTOPRAZOLE SO40 MG PO (12:44)
[2024-04-11] MEDS ORDERED: FARXIGA5 MG PO (12:45)
[2024-04-11] MEDS ORDERED: POTASSIUM CHLO20 ME1 PO (12:47)
[2024-04-11] MEDS ORDERED: ONGLYZA5 MG PO (12:47)
[2024-04-11] MEDS ORDERED: TRESIBA FL200 UNIT/1 SUB-Q (12:48)
[2024-04-11] MEDS ORDERED: QUETIAPINE FUMA25 MG PO (12:49)
[2024-04-11] MEDS ORDERED: ATENOLOL50 MG PO (12:53)
[2024-04-11] MEDS ORDERED: FUROSEMIDE20 MG PO (12:54)
--- NOTE | 2024-04-11 13:11 | NUR ---
PATIENT SITTING UP ON COUCH EATING LUNCH. SECURITY AND SITTER IN ROOM WELL.
[2024-04-11] MEDS ORDERED: HYDROCODON-ACE1 EAC8 PO (16:17)
--- NOTE | 2024-04-11 17:03 | NUR ---
SPOKE WITH SISTER LORENA ON THE PHONE, INFORMED RN THAT PT RECENTLY HAD STENT PLACEMENT FOR GALLSTONES. DR CRAWFORD NOTIFIED, CT VERBAL ORDER GIVEN WIHT CONTRAST
--- NOTE | 2024-04-11 17:33 | NUR ---
PT ARRIVES TO ROOM IN WHEELCHAIR. REPORT RECIEVED FROM GREGORY MORFIN. VITALS AND BG COMPLETE. DINNER TRAY ARRIVED. PT DENIES ANY NEEDS FROM THIS RN. CALL LIGHT IN REACH. BED ALARM ON.
--- NOTE | 2024-04-11 18:05 | NUR ---
BEDSIDE REPORT GIVEN TO RN AT 1715. PT RETURNED FROM CT, ASSISTED TO BED, BELONGINGS BROUGHT WIHT.
--- NOTE | 2024-04-11 18:30 | NUR ---
PTs VAL (ROBERT DAVIS) CALLING TO TALK TO PT. THIS RN ASKS PT IF IT IS OKAY TO TRANSFER AND PT STATES "YES" WHILE GRABBING PHONE. VAL TRANSFERRED INTO ROOM AND PT ASSISTED WITH ANSWERING PHONE.
--- NOTE | 2024-04-11 18:50 | NUR ---
IN BED ALARM ALARMING. PT UP AND AMBULATING TOWARDS RESTROOM. SBA FROM BEDSIDE TO RESTROOM. BM NOTED. SBA BACK TO BED. PT DENIES ANY OTHER NEEDS AT THIS TIME. CALL LIGHT IN REACH. BED ALARM ON.
--- NOTE | 2024-04-11 19:20 | NUR ---
REPORT RECEIVED FROM DAY RN. PATIENT RESTING IN BED. REQUESTED A WARM BLANKET. WARM BLANKET GIVEN. REQUESTED TO GO TO THE BATHROOM. PATIENT ASSISTED TO BATHROOM 1 PA ASSIST. AMBULATING WELL WITH NO ISSUES OR CONCERNS. PATIENT BACK IN BED. CALL LIGHT WITHIN REACH, BED ALARM ON.
--- NOTE | 2024-04-11 21:21 | NUR ---
PAINT ROLLER COVERMAKER OBTAINED VITALS. NO NEW I&O NOTED. PT STATES NO FURTHER NEEDS AT THIS TIME. CALL LIGHT WITHIN REACH AND RN IN ROOM.
--- NOTE | 2024-04-11 21:35 | NUR ---
PATIENT RESTING IN BED. BLOOD SUGAR TAKEN. NO HS INSULING INDICATED. PATIENT ESPRESSING THAT SHE IS EXPERIANCING STOMACH DISCOMFORT. BOWEL TONES ACTIVE X 4 QUADRANTS. WHEN ASKED IF SHE WOULD LIKE PAIN MEDICATIONS SHE REPLIED "YES". LUNGS CTA. BILATERAL GIRPS EVEN. PATIENT CONTINUES WITH DIFFICULTY SPEAKING, ABLE TO MAKE NEEDS KNOWN BY POINT AND ANSWERING YES AND NO QUESTIONS.
--- NOTE | 2024-04-11 21:47 | NUR ---
RN UPDATED MD VIA PHONE OF PATIENT SYMTPOMS. NEW ORDERS RECEIVED AND VERIFIED VIA VERBAL READBACK.
[2024-04-11] MEDS ORDERED: diphenhydrAMINE HCL 50 MG/ML VIAL IV PRN (22:00)
--- NOTE | 2024-04-11 22:44 | NUR ---
CALL LIGHT ANSWERED. PT NEEDED TO USE BATHROOM. RESERVES CLERK SBA TO BATHROOM. PT AMBULATES WELL. PT SBA BACK TO BED. PT WANTED TO SIT AT EDGE OF BED WHILE TAKLING TO SON. PT STATES NO FURTHER NEEDS AT THIS TIME. CALL LIGHT WITHIN REACH AND PT CAMPAINION IN ROOM.
--- NOTE | 2024-04-11 22:50 | NUR ---
PATIENT'S SON AT BEDSIDE. ASKING ABOUT HER PAIN MEDICATIONS. PATIENT'S SON REPORTS SHE TAKES HER PAIN MEDICATIONS REGULARY AT HOME FOR BACK PAIN AND HIP PAIN. RN SPOKE WITH MD ABOUT FAMILY COMCERNS REGUARDING HOME PAIN MEDICATIONS AT NURSES STATION. NO NEW ORDERS AT THIS TIME. MD EXPRESSED CONCERNS FOR BASLINE MENTAL STATUS. WILL CONTINUE WITH ALTERNATIVE PAIN RELEIF.
--- NOTE | 2024-04-12 00:12 | NUR ---
PATIENT RESTING IN BED WITH EYES CLOSED. RESPIRATIONS EVEN AND UNLABORED. PATIENT DOES NOT APPEAR TO BE IN ANY DISTRESS. RESTING COMFORTABLY. CALL LIGHT WITHIN REAH. BED ALARM ON.
--- NOTE | 2024-04-12 01:00 | NUR ---
'S CALLED AND ASKED TO BE TRANSFERED TO pt ROOM. pt RESTING QUIETLY WITH EYES CLOSED, RR EVEN AND UNLABORED. SUGGESTED TO IF SHE'S WILLING, THIS RN CAN WRITE DOWN HER NUMBER AND GIVE IT ALONG WITH HOSPTIAL ROOM PHONE TO HER SO THE RINGING OF THE TRANSFER DOESN'T WAKE UP THE pt. JARED, # PROVIDED ([phone]). UPON ENTERING ROOM, pt's SON IS ALSO SLEEPING AT THIS TIME, ATTEMPTED TO CALL BACK TO UPDATE HER, NO ANSWER ON PHONE.
--- NOTE | 2024-04-12 02:03 | NUR ---
CALL LIGHT ANSWERED. PATIENT ASSISTED TO BATHROOM. VOIDING QUANITY SUFFICIENT. RN OFFERED HOT PACK FOR BACK. PATIENT ACCEPTED HOT PACK. PAIENT BACK IN BED. SON AT BEDSIDE SLEEPING. CALL LIGHT WITHIN REACH.
--- NOTE | 2024-04-12 04:00 | NUR ---
BED ALARM SOUNDING. PATIENT WANTING TO SIT AT SIDE OF BED. SITTER IN ROOM WITH PATIENT. RN OKAY WITH THIS AT THIS TIME. PATIENT SITTING AT SIDE OF BED TALKING TO SON. DENIES ANY NEEDS AT THIS TIME. CALL LIGHT WITHIN REACH.
[2024-04-12 05:55] VITALS: BP 164/71
--- NOTE | 2024-04-12 06:20 | NUR ---
PATIENT RESTING IN BED WITH EYES CLOSED. VSS. AROUSES TO SOUND. SITTER WHO IS IN THE ROOM WITH PATIENT INFORMED THIS RN THATS WHILE PATIENT WAS SITTING ON THE SIDE OF THE BED SHE WAS BENDING OVER TRYING TO PICK SOMETHING OFF THE FLOOR. SITTER HAD TO ASSIST PATIENT AND REDIRECT SO SHE DID NOT FALL OUT FACE FORWARD. NO NEEDS REPORTED AT THIS TIME. CALL LIGHT WITHIN REACH. BED ALARM ON.
--- NOTE | 2024-04-12 07:45 | NUR ---
RECIEVED SHIFT REPORT. PT AWAKE IN BED, AWAKE. PT IS UPSET DUE TO NOT GETTING THE PAIN MEDS. REQUESTED TO MAKE A PHONE CALL. THIS RN DIALED THE PHONE FOR PT. BED ALARM ON FOR SAFETY. CALL LIGHT IN REACH. FALL MAT ON FLOOR FOR SAFETY.
--- NOTE | 2024-04-12 08:47 | NUR ---
PT SISTER, LORENA FROM [place] CALLED TO RECIEVE AN UPDATE ON THE PATIENT. PT GAVE CONCENT TO SPEAK WITH SISTER. SISTER SAID PT HAS BEEN CALLING ALL MORNING WITH CONCERNS THAT SHE HASNT BEEN RECIEVING INSULIN SHOT. EXPLAINED TO SISTER THAT PT BLOOD GLUCOSE LEVELS HAVE BEEN WITHIN NORMAL LIMITS. SISTER ALSO EXPLAINED THAT THE INSULIN THAT PT WAS ON AT HOME WAS LEFT OUT IN THE SUN FOR 3 DAYS AND WILL BE NEEDING AN PRESCRIPTION WHEN DISCHARGED. WILL RELAY TO MD. SISTER ALSO ASKED IF AT DISCHARGE WE GIVE A 3 DAY NOTICE FOR THE SISTER TO DRIVE FROM [place].
[2024-04-12 09:13] VITALS: BP 148/68
--- NOTE | 2024-04-12 09:18 | NUR ---
MORNING ASSESSMENT COMPLETE. PT IN RECLINER, UPSET ABOUT PAIN MEDICATIONS AND NOT RECIEVING THEM. STATES SHE IS IN PAIN BUT UNABLE TO EXPRESS LEVEL. EXPLAINED TO RN WILL DISCUSS WITH MD. DENIES NEEDS. CALL LIGHT IN REACH.
--- NOTE | 2024-04-12 09:36 | NUR ---
INFORMED BY GREGORY CARRANZA THAT SON WANTED TO SPEAK WITH SPIRITUAL CARE. ATTEMPTED TO VISIT DURING SPIRITUAL CARE ROUNDS. SON NOT IN ROOM; PT WORKING WITH PHYSICAL THERAPY. WILL RETURN TIME ALLOWS.
[2024-04-12] MEDS ORDERED: MAGNESIUM CITRATE 300 ML BTL PO ONE ×2 (09:45→11:45)
--- NOTE | 2024-04-12 09:45 | NUR ---
Notified pts son is in the room and would like a visit. In and spoke with pt and son. Updated we are trying to find placement to an IP rehab. [facility] would like to wait to see how she is doing on Monday. Pt has word salad and anxious. Pt does not want to go to rehab or SNF. Pt wants to discharge today and go home to [facility]. She wants her sister to drive from [place] and pick her up. Son stating he cannot take mom home. She left through a locked gate and he cannot take her home. Pt refusing SNF or rehab. Let pt know I am not sure if the will discharge her today. He had indicated he would dc to a SNF or Rehab. I texted Dr Johnson and asked if he could return to the room for this discussion. Dr. Johnson arrived and states he will not dc pt to home. It is a matter of safety. Pt is very frustrated. Son stating he cannot take her home. Son asks we talk in private. Pt agrees this is fine. Visited with Rn, son, and Dr. Johnson in private room. Son stating he picked up his mom in [place] and she was home one night. She was attempting to leave the entire time. She left through a locked gate (their son is autistic) and he was unable to find her for a day. He called his Aunt and she agrees to leave from [place] tomorrow am. She will arrive Monday or Monday. We discussed I have not had any SNFS accept her and IP will not take her this week. Dr. Johnson agrees for pt to stay and dc to home with sister on Monday or Monday. Sister will contact a pcp in [place] and request rehab for this pt.
[2024-04-12] MEDS ORDERED: TYLENOL325 MG PO (09:49)
--- NOTE | 2024-04-12 09:56 | NUR ---
MED REC COMPLETE
--- NOTE | 2024-04-12 10:00 | NUR ---
VISITED WHEN FAMILY ARRIVED. PROVIDED SUPPORTIVE PRESENCE, HOSPITALITY, PRAYER. PT AND FAMILY EXPRESSED GRATITUDE.
--- NOTE | 2024-04-12 10:57 | NUR ---
Sonia will speak with patient's son, Navdeep, to discuss Medicaid. Patient has previously been on [place] Medicaid for assistance. Recieved call from Sandra at [facility]. Currently unable to accept patient. They have no speech therapy and OT is only in facility weekly so she feels they can not meet patient needs at this time.
--- NOTE | 2024-04-12 11:15 | NUR ---
Received a text from Adeline at [facility]. They are unable to accept this pt as they do not contract with this pts insurance. I contacted Eligibility and requested the speak with pt for OHP. Pt has been on [place] in the past, but left the state. Received a call from Sandra at [facility]. They are hesitant to take this pt unless she has OHP. Also state they do not currently have ST. Let them know this is a must. I a have not been able to reach anyone at [place] for 3 days. Messages left and 0 return calls.
[2024-04-12 13:25] VITALS: BP 147/67
[2024-04-12] MEDS ORDERED: NITROGLYCERIN PACKET TOP SCH (14:00)
--- NOTE | 2024-04-12 15:46 | NUR ---
PT REQUESTED TO SIT IN THE CHAIR. CHAIR ALARM ON FOR SAFETY. CALL LIGHT IN REACH.
[2024-04-12] MEDS ORDERED: CYANOCOBALAMIN 1,000 MCG TAB PO SCH (17:20)
[2024-04-12] MEDS ORDERED: atenoloL 50 MG TAB PO SCH (17:23)
[2024-04-12] MEDS ORDERED: AMLODIPINE BESYLATE 10 MG TAB PO SCH (17:23)
[2024-04-12] MEDS ORDERED: lisinopriL 10 MG TAB PO SCH (17:23)
[2024-04-12 17:39] VITALS: BP 153/70
--- NOTE | 2024-04-12 18:49 | NUR ---
PTs SON BRINGS PTs RX OF FUROSEMIDE 20MG TABLETS NOTED TO HAVE 78 TABLETS. SEROQUEL 25MG TABLETS NOTED TO HAVE 30 TABLETS. LEXAPRO 5MG TABLETS NOTED TO HAVE 23 TABLETS. 2 RN COUNT VERIFIED WITH OPAL Moscoso RN. MEDICATIONS PLACED IN SAFE.
--- NOTE | 2024-04-12 19:25 | NUR ---
RECEIVED REPORT FROM DAY RN. PATIENT RESTING IN BED WITH FAMILY AT BEDSIDE INCLUDING HER SON AND TWO GRANDCHILDREN. PATIENT UPSET ABOUT NOT HAVING HER "SHOT" FOR PAIN MEDICATIONS. PATIENT'S SON UPSET WELL ABOUT HER NOT BEING ABLE TO HAVE HER NORCO. STATING, "I WILL FILE A REPORT IF I NEED TO." RN CLARIFIED WHERE PATIENT WAS HAVING PAIN. WHEN ASKED PATIENT POINTS AND RUBS HER UPPER ABDOMEN. RN ASKED PATIENT TO CLARIFY, "DOES YOUR STOMACH HURT?" PATIENT RESPONDED WITH, "YES." RN EDUCATED PATIENT AND HER SON ON CURRENT CONDITION OF BEING CONSTIPATED, FURTHER MORE EXPLAINING THAT PAIN MEDICATIONS SUCH OPIOIDS ONLY PROMOTE CONSTIPATION. RN EXPLAINED THAT PATIENT HAS NEW MEDICATIONS ORDERED THAT ARE TO HELP IMPROVE HER CONSTIPATION. FURTHERMORE RN EXPLAINED PATIENTS POC TO ADDRESS HER CURRENT PAIN AND DISCOMFORT. BOTH THE PATIENT AND HER SON APPEARED TO BE UNDERSTANDING OF THE POC. RN OFFERED TO CALL THE YARD PIPE GRADER IF THE PATIENTS SON FELT THE NEED TO FILE A REPORT. THE PATIENT'S SON SHOOK HIS HEAD STATING, " I WILL WAIT FOR NOW."
[2024-04-12 20:42] VITALS: BP 116/52
[2024-04-12] MEDS ORDERED: QUETIAPINE FUMARATE 25 MG TAB PO SCH (21:00)
[2024-04-12] MEDS ORDERED: ATORVASTATIN 40 MG TAB PO SCH (21:00)
[2024-04-12] MEDS ORDERED: QUETIAPINE FUMARATE 100 MG TAB PO SCH (21:00)
--- NOTE | 2024-04-12 21:24 | NUR ---
RN SPOKE WITH MD REGUARDING PATIENT BP AND HS NITRO DOSE. MD GAVE NEW ORDERS. ORDERS VERIFIED VIA VERBAL READ BACK.
[2024-04-12] MEDS ORDERED: GLYCERIN 2 GM SUPP PR ONE (21:30)
--- NOTE | 2024-04-12 22:17 | NUR ---
PATIENT IN BED RESTING ON LEFT SIDE. ADMINISTERED SUPP PER MD ORDER. DENIES ANY PAIN OR DISCOMFORT AT THIS TIME. CALL LIGHT WITHIN REACH. BED ALARM ON.
[2024-04-13] VITALS (18 sets, daily range): BP systolic 71–134; BP diastolic 32–85
--- NOTE | 2024-04-13 00:15 | NUR ---
PATIENT RESTING IN BED WITH EYES CLOSED. RESPIRATIONS EVEN AND UNLABORED. CALL LIGHT WITHIN REACH. BED ALARM ON. SON IS AT BEDSIDE.
--- NOTE | 2024-04-13 02:08 | NUR ---
RN ENTERED ROOM TO DO ROUNDS AND CHECK BP FOR SCHEDULED MEDICATIONS. PATIENT RESPONSIVENESS DECREASED. PUPILS SMALLER HOWEVER RESPONSIVE TO LIGHT. BP CHECKED FRIST READING 71/37 (43), PATIENT WAS PLACED IN REVERSE [place]. BP SLIGHTLY IMPROVED TO 82/42 (52). RN NOTIFIED MD WHILE MAKE READY MECHANIC AND SECOND RN STAYED AT BEDSIDE WITH PATIENT. NEW ORDERS RECEIVED VIA TELEPHONE AND ORDERS VERIFIED VIA VERBAL READ BACK. PATIENT TO RECEIEVE 500ML BOLUS OF NS, HOLD ALL AM BP MEDICATIONS.
--- NOTE | 2024-04-13 02:13 | NUR ---
ACCUCHECK DONE AND IS 148 AT THIS TIME
--- NOTE | 2024-04-13 02:20 | NUR ---
PLAYGROUND OFFICIAL NAVA ON MS FLOOR AND IN pt ROOM, UPDATED HIM ON pt'S TRENDING BP'S AND NEW ORDER FOR FLUID BOLUS. PRIMARY RN HANGING FLUID BOLUS, pt BECOMING MORE ALERT AND INTERACTIVE BOLUS IS INFUSING. pt IN [place] POSITION. ACCUCHECK WNL. SEE PRIMARY RN NOTE REGARDING DETAILS RN HAD WITH DR AGUIRRE.
[2024-04-13] MEDS ORDERED: SODIUM CHLORIDE 0.9% 500 ML IV PRN ×2 (02:30→06:00)
--- NOTE | 2024-04-13 02:56 | NUR ---
PATIENTS BP IMPROVING. PATIENT RESPONSIVENESS IS INCREASING.
--- NOTE | 2024-04-13 03:23 | NUR ---
lead worker of housekeeping and laundry sudarshan updated on pt's bp.
--- NOTE | 2024-04-13 04:07 | NUR ---
PATIENT RESTING IN BED WITH EYES CLOSED. RESPIRATIONS EVEN AND UNLABORED. CALL LIGHT WITHIN REACH. BED ALARM ON.
[2024-04-13 05:22] LABS: BASOPHILS 0.8 % (0-2); EOSINOPHILS 0.9 % (0-6); HEMATOCRIT 42.5 % (35.0-50.0); HEMOGLOBIN 14.8 g/dL (12.0-18.0); LYMPHOCYTES 18.6 % (24-44); MCH 33.4 (27-36); MCHC 34.8 g/dl (30-36); MONOCYTES 6.9 % (0-12); NEUTROPHILS 72.8 % (39-80); PLATELET COUNT 205 K/uL (140-440); RBC 4.43 M/ul (4.3-5.7); RDW 13.9 (10.5-15.0)
[2024-04-13 05:30] LABS: ANION GAP 14.3 (7-21); BUN/CREATININE RATIO 23.17 (6.0-28.6); CALCIUM 8.3 mg/dL (8.5-10.1); CREATININE, SERUM 0.82 mg/dL (0.55-1.02); POTASSIUM 4.3 mmol/L (3.5-5.1)
--- NOTE | 2024-04-13 05:34 | NUR ---
RN IN ROOM FOR LAST ROUNDS. PATIENT BP LOW. 74/32 (41). RN NOTIFIED MD. MD GAVE VERBAL TELEPHONE ORDER FOR 500ML BOLUS OF NS.
--- NOTE | 2024-04-13 05:38 | NUR ---
INFORMED BY PRIMARY RN OF pt's LOW BP. THIS RN CALLED DR AGUIRRE AND ADVOCATED FOR pt TO BE TRANSFERRED TO CCU FOR CLOSER OBSERVATION. TELEPHONE ORDER READ BACK FOR pt TO BE TRANSFERRED TO CCU AT THIS TIME. TURNING MACHINE OPERATOR NAVA MADE AWARE AND UPDATE PROVIDED TO CCU GREGORY DUMONT. TURNING MACHINE OPERATOR NAVA AND GREGORY ARTHUR COLLECTING pt BELONGINS AND TAKING pt TO CCU AT THIS TIME.
--- NOTE | 2024-04-13 05:50 | NUR ---
REPORT GIVEN TO CCU RN.
[2024-04-13] MEDS ORDERED: PANTOPRAZOLE SODIUM 40 MG TABEC PO SCH (06:00)
--- NOTE | 2024-04-13 06:39 | NUR ---
PATIENT ALERT ANSWERS QUESTIONS APPROPRIATELY, SHE SWALLOWED PROTONIX WITH WATER, NO COUGH, OR SIGNS OF ASPIRATION. SHE REPORTS SHE IS TIRED.
--- NOTE | 2024-04-13 06:41 | NUR ---
PATIENT ABLE TO CHANGE CHANNELS ON TV IN ROOM AND THEN TURNED OFF TO SLEEP.
--- NOTE | 2024-04-13 06:59 | NUR ---
CALLED TO REPORT PATIENT BLOOD PRESSURE LOW 88/41 WITH MAP OF 57.
[2024-04-13] MEDS ORDERED: SODIUM CHLORIDE 0.9% 1,000 ML IV SCH (07:00)
[2024-04-13] MEDS ORDERED: SODIUM CHLORIDE 0.9% 500 ML IV SCH (07:00)
--- NOTE | 2024-04-13 07:05 | NUR ---
DAUGHTER TRAVELING FROM [place] CALLED FOR UPDATE.
[2024-04-13] MEDS ORDERED: FUROSEMIDE 20 MG TAB PO SCH (09:00)
--- NOTE | 2024-04-13 09:19 | NUR ---
PATIENT UP TO CHAIR FOR BREAKFAST THIS AM. AM MEDS GIVEN, WITHHOLDING ANY BLOOD PRESSURE MEDICATIONS. PT'S SON HERE FIRST,AND VERY ADAMENT AND ANIMATED ABOUT HIS MOTHER'S CARE. SON, OLIVIA, CONCERNED ABOUT HER WELL BEING IN CCU, STATING HE IS NOT PLEASED WITH THE CARE SHE IS BEING GIVEN HERE. WHEN OLIVIA RETURNS TO ROOM WITH DR. AGUIRRE, AND SUPPLIER SPECIALIST OPAL IN ROOM, PT RETURNS WITH HIS FAMILY. OLIVIA AND HIS INITIALLY DEMANDING AN DANCING TEACHER SEE THE PATIENT, QUESTIONING DR. AGUIRRE ABOUT WHAT HER "SPECIALTY" IS, AND DEMANDING THAT SHE BE TRANSFERRED TO [place] WHERE THEY KNOW THE DOCTORS. THIS ENTIRE ENOUNTER LASTS FOR ABOUT 15 MINUTES. FAMILY IS ADAMENT THAT PATIENT NEEDS HER PAIN MEDICAITON, AND WHEN ASKING THE PATIENT IF SHE DOES WANT HER PAIN MEDICAITON SHE DOES CLEARLY SAY "YES." PT STILL STRUGGLING WITH EXPRESSIVE APHASIA, AND MOSTLY SHE IS INCOMPREHNSIBLE. PT NOW BACK TO BED, HER FAMILY HAS LEFT TO GO GET HER MCDONALDS. FAMILY UPSET THAT SHE HAS NOT BEEN EATING WELL AND BLAMING THIS ON THE FOOD WE HAVE BEEN GIVING HER. PT HAD A POOR APPETITE THIS AM AND HARDLY ATE OR DRANK ANYTHING. DR. AGUIRRE STATES SHE WILL RESTART HER PAIN MEDICATION. WILL CONTINUE TO MONITOR.
[2024-04-13] MEDS ORDERED: HYDROCODONE/APAP 10/325 1 TAB PO PRN (09:45)
--- NOTE | 2024-04-13 10:40 | NUR ---
PATIENT'S FAMILY RETURNS AND BRINGS HER MCDONALDS TO EAT. PT EATS MOST OF HER BREAKFAST SANDWICH. PRN PAIN MEDICATION GIVEN WELL. FAMILY HAS SINCE LEFT, BUT HAVE FORGOTTEN THEIR KEYS YET AGAIN FOR THE SECOND TIME TODAY IN PATIENT'S ROOM. IVF CONTINUE AT 125 ML/HR, AND ALL BP MEDS ARE D/C AT THIS TIME. PT STILL TRYING TO COMMUNICATE, BUT HER EXPRESSIVE APHASIA MAKING IT DIFFICULT TO UNDERSTAND. WILL CONTINUE TO MONITOR.
--- NOTE | 2024-04-13 14:05 | NUR ---
PATIENT'S FAMILY HAS BROUGHT HER IN [facility] NOW FOR LUNCH, TO WHICH SHE IS EATING FAIRLY WELL. PT DOES NOT LIKE THE FOOD BEING SERVED HERE. MENU CHOICES OFFERED. LAST BP 118/58, HR 60-70s. PT RESTING.
--- NOTE | 2024-04-13 17:14 | NUR ---
PATIENT RESTING/SLEEPINGAT THIS TIME. NO FAMILY PRESENTLY IN ROOM. PRN PAIN MEDICATION X2 SO FAR TODAY.
--- NOTE | 2024-04-13 20:30 | NUR ---
PATIENT DAUGHTER IN [place] CAME OUT OF ROOM TO REPORT A DRINK SPILL IN BED, THIS RN AND CIRCULATION ASSISTANT INTO ROOM TO CHANGE BED AND CHECK BS, AND ADMINISTER HS MEDICATIONS, PATIENT DAUGHTER IN [place] SAID NO FOR NOW TO THE SEROQUEL, LIPITOR ADMINISTERED, DISCUSSED NEXT PAIN MEDICATION AVAILABLE AT 2200. PATIENT TALKING SHORT SENTENCES CLEARLY, AMBULATING WITH STANDBY ASSIST WITH STEADY GAIT.
--- NOTE | 2024-04-13 20:37 | NUR ---
PATIENT SON BACK IN ROOM NOW OLIVIA, HE SAID NO TO SEROQUEL, WILL HOLD PER PREFERENCE. ALSO UPDATED ON PATIENT STATUS AND BLOOD SUGAR.
[2024-04-13] MEDS ORDERED: QUETIAPINE FUMARATE 25 MG TAB PO SCH (21:00)
--- NOTE | 2024-04-13 21:58 | NUR ---
PATIENT RESTING IN BED, ALERT AND ORIENTED, SHE JUST SPOKE WITH SISTER ON PHONE AND IS EXCITED TO SEE HER, SHE REPORTS PAIN 6/10 AND IS ADMINISTERED NORCO PRN, SEE EMAR. FAMILY IN ROOM, PLAN TO SPEND THE NIGHT.
[2024-04-14 02:05] VITALS: BP 142/52
--- NOTE | 2024-04-14 03:33 | NUR ---
PATIENT HAS BEEN SLEEPING, SHE WOKE AND WAS DISORIENTED TO TIME, SHE FELT IT WAS TIME FOR PAIN MEDICATIONS, REORIENTED AND DISCUSSED PAIN MEDICATION ORDERS, SON OLIVIA IN ROOM ALSO EXPLAINED TO PATIENT. WILL REASSESS PAIN AT 0400.
[2024-04-14 03:36] VITALS: BP 142/52
--- NOTE | 2024-04-14 04:08 | NUR ---
PATIENT REPORTS PAIN IS HIGH, PRN NORCO ADMINISTERED, 7/10 BY NONVERBAL SCALE. ASSESSMENT COMPLETE. PATIETN NOTED TO BE MORE CALM AT THIS TIME WITH RN IN ROOM WITH PAIN MEDICATIONS.
--- NOTE | 2024-04-14 04:48 | NUR ---
Patient called for assistance to detatch from wires to use the restroom. Back to bed and all wires are re-connected. Call light is within reach.
[2024-04-14 05:28] VITALS: BP 131/86
--- NOTE | 2024-04-14 05:29 | NUR ---
PATIENT DID NOT SLEEP WELL OVER NIGHT, HER SON OLIVIA REFUSED TO ALLOW PATIENT TO TAKE SEROQUEL 25MG PO LAST NIGHT, PATIENT AGREED WITH HIM. PATIENT HAS BEEN WATCHING TV, SHE DID SLEEP FOR ABOUT 2 HOURS BETWEEN MIDNIGHT AND 0200. SHE SHE WOKE AND WAS DISORIENTED TO TIME, AND THEN FELT SHE SHOULD HAVE PAIN MEDICATIONS AT 0300, REORIENTED AND DISCUSSED TIME OF NEXT AVAILABLE DOSE. NO NEW CONCERNS OVER SHIFT, V/S STABLE. SON OLIVIA HIS AND THEIR TWO CHILDREN STAYED OVERNIGHT IN PATIENT ROOM, PATIENTS SISTER IS EXPECTED TO BE INTO VISIT TODAY.
--- NOTE | 2024-04-14 06:37 | NUR ---
INTO PATIENT ROOM FOR AM MEDICATION, AND ROUNDING, PATIENT UP TO BATHROOM TO VOID, STANDBY ASSIST, PATIENT HAS STEADY GAIT. PATIENT IS SITTING UP AT BEDSIDE PER HER REQUEST. SHE HAS BEEN CALLING APPROPRIATELY, CALL LIGHT IN REACH, FAMILY IN ROOM.
[2024-04-14 08:01] VITALS: BP 147/63
--- NOTE | 2024-04-14 08:08 | NUR ---
IN PATIENT'S ROOM FOR BREAKFAST, VITALS AND ASSESSMENT. PT LAYING IN BED IN NO ACUTE DISTRESS. PT'S GRANDCHILDREN BOTH IN RECLINER CHAIRS NEXT TO BED. PT'S SON AND HIS ALSO IN ROOM. THERE IS CRAB RESIDUE ALL OVER THE FLOOR, BEDSIDE TABLES AND EVEN IN THE BED FROM THE FOOD THAT THE FAMILY BROUGHT IN LAST NIGHT. PATIENT STILL HAVING EXPRESSIVE APHASIA BUT IS COMMUNICATING A LITTLE CLEARER AT SOME POINTS AND CAN BE BETTER UNDERSTOOD TODAY THAN OTHER DAYS. PT'S SISTER LORENA ARRIVES TO ROOM AND ALSO NOW IN ROOM. SHE HAS TRAVELLED FROM [place] TO PICK HER SISTER UP ONCE SHE IS DISCHARGED. VITALS STABLE THIS AM - 147/63. PLAN OF CARE DISCUSSED.
--- NOTE | 2024-04-14 09:12 | NUR ---
DR. AGUIRRE IN ROOM TO SEE PATIENT AT THIS TIME. GRANDCHILDREN GROWLING AT PHYSICIAN, AND THE PATIENT'S SISTER ASKING THE KIDS TO STOP AND LET THE DOCTOR SEE PATIENT. PATIENT'S SISTER LORENA PLANNING TO TAKE PATIENT BACK TO [place] WITH HER. DISCUSSING HOME MEDICATIONS.
[2024-04-14] MEDS ORDERED: CLOPIDOGREL75 MG PO (10:13)
[2024-04-14] MEDS ORDERED: LIPITOR40 MG PO (10:14)
[2024-04-14] MEDS ORDERED: QUETIAPINE FUMA25 MG PO (10:15)
[2024-04-14] MEDS ORDERED: ASPIRIN81 MG PO (10:15)
[2024-04-14] MEDS ORDERED: TRESIBA FL200 UNIT/1 SUB-Q (10:17)
--- NOTE | 2024-04-14 11:40 | NUR ---
PATIENT D/C HOME WITH HER SISTER LORENA QUICK, PHONE NUMBER [phone]. PT'S SON AND HIS FAMILY ALSO PRESENT ON D/C. ALL INSTRUCTIONS GONE OVER WITH PATIENT AND HER SISTER. PT'S HOME MEDICATIONS THAT WERE LOCKED IN SAFE WERE ALL RETURNED-PT ABLE TO SIGN FOR RETURN OF MEDS. PT HAS INSTRUCTIONS NOT TO RESUME ANY INSULINS AT THIS TIME HER BLOOD SUGARS WERE WELL CONTROLLED WHILE IN HOSPITAL, AND HEMOBLOBIN A1C WAS 7.6%. PT'S PLAN IS TO MOVE TO [facility] WITH HER SISTER LORENA AND [place]IDE.
== END 2024-04-14 11:30 | disposition home or self-care (01) | DRG 64 ==
LOC: ED 21:03 → CCU 22:13 → MS 04-11 17:45 → CCU 04-13 05:45
PROVIDERS: Internal Medicine; ADMIT Internal Medicine; ATTEND Family Medicine
DX: I63.512 Cerebral infarction due to unspecified occlusion or stenosis of left middle cerebral artery (principal); G93.6 Cerebral edema; K55.1 Chronic vascular disorders of intestine; R47.01 Aphasia; I10 Essential (primary) hypertension; I95.9 Hypotension, unspecified; G89.29 Other chronic pain; F39 Unspecified mood [affective] disorder; K74.60 Unspecified cirrhosis of liver; F17.200 Nicotine dependence, unspecified, uncomplicated; E11.42 Type 2 diabetes mellitus with diabetic polyneuropathy; J44.9 Chronic obstructive pulmonary disease, unspecified; R29.706 NIHSS score 6; E11.649 Type 2 diabetes mellitus with hypoglycemia without coma; Z86.73 Personal history of transient ischemic attack (TIA), and cerebral infarction without residual deficits; Z79.4 Long term (current) use of insulin; Z79.02 Long term (current) use of antithrombotics/antiplatelets; Z79.84 Long term (current) use of oral hypoglycemic drugs
CPT/HCPCS: 36415; 70450; 70496; 70498; 70553; 71045; 74018; 74160; 80048; 80053; 80307; 81001; 82140; 83036; 83735; 83880; 84484; 85025; 92507; 92523; 93005; 93010; 97163; 97167; 97530; 99285-25; A9270; A9579; G0480; J1200; J1815; J7040; Q9967